=== PATIENT | female | born 1935 | race Two or more races ===

== ENCOUNTER → 2017-06-02 | Outpatient (CLI) | payer OTHER ==
[2015-01-04 12:10] VITALS: BP 179/63
[~2017-06-02] MED LIST: CYAN10002 IM; LOSA100T6 PO; MULT1TAB52 PO; REGADENOSON 0.4 MG/5 ML DISP.SYRIN. IV ONE
--- NOTE | 2017-06-02 13:32 | RAD ---
APPROVED REPORT Test Type: Pharmacological Stress Nurse/Tech: Dennise Henning R.N. Test Indications: weakness, fatigue, cp Cardiac History: htn, copd, Medications: see ehr Medical History: see ehr Resting ECG: SR Resting Heart Rate: 60 bpm Resting Blood Pressure: 154/63mmHg Pretest Chest Pain: No chest pain Nurse/Tech Notes Lungs cta, heart tones regular Consent: The procedure was explained to the patient in lay terms. Informed consent was witnessed. Carlos eout was entered into [employer]. History and Stress Test performed by REBEKAH Corea, JAYCOB (R) (N) Pharm. Details Pharmacologic stress testing was performed using 0.4mg per 5ml of regadenoson given intravenously ove r 7-10 seconds. Stress Symptoms No chest pain or symptoms.Dyspnea POST EXERCISE Reason for Termination: Infusion complete Target HR: No Max HR: 86 bpm Max Blood Pressure: 147/50mmHg Chest Pain: No. Arrhythmia: No. ST Change: No. INTERPRETATION Stress EKG Conclusion: No evidence of ischemia by EKG on vasodilator testing. Imaging Protocol IMAGE PROTOCOL: Rest Tc-99m/stress Tc-99m 1 day Rest: Stress: Viability: Radiopharm.Tc99m [id number] Sestamibi Dose11.7mCi 34mCi Duration 20min. 15min. Img Date 06/02/2017 06/02/2017 Inj-Img [id number]. 60min. Rest Admin Site:IV - Right AntecubitalAdministrator:REBEKAH Corea ARRT (R)(N) Stress Admin Site: IV - Right AntecubitalAdministrator: RT Iris (R)(N) STRESS DATA End Diast. Vol.43.0mlAv. Heart Rate65.0bpm End Syst. Vol.7.0mlCO Index BSA0.0L/min Myocardial Mass84.0gEject. Ctivmbmv70.0% Stress Rates Pk. Fill Rate3.28EDV/secLVtime Pk. Fill 276.42msec Pk. Empty Rate5.17ESV/secLVtime Pk. Zesub756.86msec 07/22 Pk. Fill1.43EDV/sec Stress Scores Regional WT0.00Summed WT0.00 Regional WM0.00Summed WM0.00 The rest and stress images show normal perfusion, normal contraction and thickening. LV Perf. Quant 17 Seg. SSS0.00 17 Seg. SRS0.00 17 Seg. SDS0.00 Stress Defect Extent (% LAD)0.00Rest Defect Extent (% LAD)0.00Rev. Defect Extent (% LAD)0.00 Stress Defect Extent (% LCX) 0.00Rest Defect Extent (% LCX)0.00Rev. Defect Extent (% LCX)0.00 Stress Defect Extent (% RCA)0.00Rest Defect Extent (% RCA)0.00Rev. Defect Extent (% RCA)0.00 Stress Defect Extent (% RAFAL)0.00Rest Defect Extent (% RAFAL)0.00Rev. Defect Extent (% RAFAL)0.00 Other Information Quality:Average Risk Assessment: Low Risk Conclusion 1. No evidence of EKG changes with stress testing. 2. Normal perfusion at stress/rest. 3. Low risk study. 4. EF > 60%.
== END | disposition home or self-care (01) ==
LOC: NM 07:51
PROVIDERS: ATTEND Internal Medicine Cardiovascular Disease
DX: I10 Essential (primary) hypertension (principal); R07.9 Chest pain, unspecified; R53.83 Other fatigue; R53.1 Weakness
CPT/HCPCS: 78452; 93017; 96374; 96375; 96376; A9500; J2785

== ENCOUNTER → 2019-05-12 | Outpatient (CLI) | payer OTHER ==
[2015-01-04 12:10] VITALS: BP 179/63
[~2019-05-12] MED LIST changes: +LOSA100T14 PO; -LOSA100T6 PO; -REGADENOSON 0.4 MG/5 ML DISP.SYRIN. IV ONE
== END | disposition home or self-care (01) ==
LOC: LAB 11:41
PROVIDERS: ATTEND Psychiatry & Neurology Neurology with Special Qualifications in Child Neurology
DX: G44.209 Tension-type headache, unspecified, not intractable (principal)
CPT/HCPCS: 36415; 85651

== ENCOUNTER → 2019-05-27 | Outpatient (CLI) | payer OTHER ==
[2015-01-04 12:10] VITALS: BP 179/63
--- NOTE | 2019-05-27 11:19 | KCIC ---
MRI of the brain without contrast 05/27/2019 Clinical History: Chronic posterior headaches for years. Technique: Unenhanced T1-weighted sagittal and axial, T2-weighted axial and coronal and FLAIR, gradient echo and diffusion-weighted axial images of the brain were obtained. Findings: No previous imaging studies are available for comparison. There is generalized parenchymal atrophy. Patchy, confluent and multiple focal areas of increased signal intensity are seen within the periventricular and subcortical white matter of both cerebral hemispheres on the FLAIR and T2-weighted images consistent most likely with areas of small vessel ischemic disease. No acute parenchymal abnormality is seen. No extra-axial fluid collection is seen. There is no MRI evidence of acute ischemia/infarction. Mild mucosal thickening in seen scattered throughout the paranasal sinuses. There is a minimal left mastoid effusion. Normal flow voids are seen within the major vascular structures surrounding the brain parenchyma. Impression: No acute parenchymal abnormality is seen. Electronically signed by: Dominic Wilcox MD (05/27/2019 11:16 AM) [id number]
== END | disposition home or self-care (01) ==
LOC: KCIC MRI 10:02
PROVIDERS: ATTEND Psychiatry & Neurology Neurology with Special Qualifications in Child Neurology
DX: G31.89 Other specified degenerative diseases of nervous system (principal); J34.89 Other specified disorders of nose and nasal sinuses
CPT/HCPCS: 70551